=== PATIENT | male | born 2000 | race Caucasian/White ===

== ENCOUNTER 2019-12-02 12:48 | Emergency (ER) | payer OTHER ==
[~2019-12-02] VITALS: Ht 175.2 cm; Wt 72.6 kg
[2019-12-02] MEDS ORDERED: IBUPROFEN600 MG PO (15:42)
== END 2019-12-02 15:52 | disposition home or self-care (01) ==
LOC: ED 12:48
DX: S43.402A Unspecified sprain of left shoulder joint, initial encounter (principal); S20.212A Contusion of left front wall of thorax, initial encounter; F17.200 Nicotine dependence, unspecified, uncomplicated; V47.5XXA Car driver injured in collision with fixed or stationary object in traffic accident, initial encounter; Y93.I9 Activity, other involving external motion; Y92.488 Other paved roadways as the place of occurrence of the external cause; Y99.8 Other external cause status

== ENCOUNTER 2020-12-07 11:52 | Emergency (ER) | payer OTHER ==
[~2020-12-07 11:52] MED LIST: IBUPROFEN600 MG PO
== END 2020-12-07 12:43 | disposition home or self-care (01) ==
LOC: ED 11:52
DX: S61.216A Laceration without foreign body of right little finger without damage to nail, initial encounter (principal); Z79.899 Other long term (current) drug therapy; Z98.890 Other specified postprocedural states; W26.8XXA Contact with other sharp object(s), not elsewhere classified, initial encounter; Y93.89 Activity, other specified; Y92.89 Other specified places as the place of occurrence of the external cause; Y99.8 Other external cause status

== ENCOUNTER 2021-01-10 18:35 | Emergency (ER) | payer OTHER ==
[~2021-01-10] VITALS: Ht 177.8 cm; Wt 73.9 kg
[2021-01-10] MEDS ORDERED: AUGMENTIN 875875 MG PO (20:25)
[2021-01-10] MEDS ORDERED: ZITHROMAX250 MG PO (20:35)
== END 2021-01-10 20:46 | disposition home or self-care (01) ==
LOC: ED 18:35
DX: J03.90 Acute tonsillitis, unspecified (principal); Z88.0 Allergy status to penicillin

== ENCOUNTER → 2021-05-10 | Outpatient (CLI) | payer OTHER ==
[~2021-05-10] MED LIST changes: +AUGMENTIN 875875 MG PO; +ZITHROMAX250 MG PO
== END | disposition home or self-care (01) ==
LOC: COVID19 16:36
PROVIDERS: ATTEND Internal Medicine
DX: Z11.52 Encounter for screening for COVID-19 (principal)